=== PATIENT | female | born 1940 | race Caucasian/White ===

== ENCOUNTER 2024-03-20 02:00 | Emergency (ER) | payer MEDICAID, MEDICARE, OTHER ==
[~2024-03-20] VITALS: Ht 162.6 cm; Wt 88.5 kg
[~2024-03-20 02:00] MED LIST: SIMV-34 PO; [UNRECOGNIZED DRUG - CODE] PO
[2024-03-20 02:07] VITALS: BP 153/85; PULSE 50; TEMP 98.5; O2SAT 98
[2024-03-20] MEDS: MORPHINE SULFATE 2 MG/ML SYR IVP STA (02:40)
[2024-03-20] MEDS: NACL 0.9% 500 ML IV ONE (02:48)
[2024-03-20] MEDS: ONDANSETRON 4 MG/2 ML VIAL IVP ONE (02:52)
[2024-03-20 02:54] LABS: INR 0.99 (0.8-1.2); PARTIAL THROMBOPLASTIN TIME 23.9 secs (22-35.6); PROTHROMBIN TIME 10.4 secs (10.8-13.4)
[2024-03-20 02:59] LABS: ALANINE AMINOTRANSFERASE 57 U/L (12-78); ALBUMIN 3.3 g/dL (3.4-5.0); ALKALINE PHOSPHATASE 121 U/L (50-136); ANION GAP 6.2 (8-16); ASPARTATE AMINOTRANSFERASE 70 U/L (15-37); CALCIUM 9.6 mg/dL (8.5-10.1); CARBON DIOXIDE 31.5 mmol/L (21-32); CHLORIDE 98 mmol/L (98-107); CREATININE 0.6 mg/dL (0.6-1.3); GLUCOSE 128 mg/dL (74-106); LIPASE 43 U/L (16-77); POTASSIUM 3.7 mmol/L (3.5-5.1); SODIUM SERUM 132 mmol/L (136-145); TOTAL BILIRUBIN 0.9 mg/dL (0.0-1.0); TOTAL PROTEIN, SERUM 7.5 g/dL (6.4-8.2); UREA NITROGEN, BLOOD 12 mg/dL (7-18)
[2024-03-20 03:07] LABS: HEMATOCRIT 37.5 % (36-48); HEMOGLOBIN 13.1 g/dL (12.0-16.0); MEAN CORPUSCULAR HEMOGLOBIN 31 pg (27-31); MEAN CORPUSCULAR VOLUME 88.8 fL (80-94); RED BLOOD CELL COUNT(AUTO) 4.23 MIL/uL (4.20-5.40)
[2024-03-20 03:08] LABS: BASOPHILS % (AUTO) 0.3 % (0.0-2.0); EOSINOPHILS % (AUTO) 1.6 % (0.0-4.0); LYMPHOCYTES % (AUTO) 41.5 % (20.5-51.1); MEAN CORPUSCULAR HGB CONC 35 g/dL (33-37); NEUTROPHILS # (AUTO) 4.1 K/uL (1.8-7.7); NEUTROPHILS % (AUTO) 51.6 % (42.2-75.2); PLATELET COUNT (AUTO) 255 K/uL (140-450); RED CELL DISTRIBUTION WIDTH 12.8 % (11.6-13.7)
[2024-03-20 03:09] LABS: EOSINOPHILS # (AUTO) 0.1 K/uL (0-0.4); LYMPHOCYTES # (AUTO) 3.3 K/uL (2.5-16.5); MONOCYTES # (AUTO) 0.4 K/uL (0.8-1.0)
[2024-03-20 03:18] LABS: APPEARANCE,URINE CLEAR (CLEAR); BILIRUBIN,URINE NEGATIVE (NEGATIVE); BLOOD, URINE NEGATIVE (NEGATIVE); COLOR,URINE YELLOW (YELLOW); LEUKOCYTE ESTERASE ,URINE 2+ (NEGATIVE); NITRITE, URINE NEGATIVE (NEGATIVE); PH,URINE 7.5 (5.0-9.0); PROTEIN,URINE NEGATIVE (NEGATIVE); UGLUCOSE NEGATIVE (NEGATIVE); UROBILINOGEN,URINE 0.2 EU/dL (0.2 - 1)
[2024-03-20 03:20] LABS: BACTERIA,URINE >30 (MANY) /HPF (None Seen); MUCUS,URINE 1+ /LPF (None Seen); RBC,URINE 0-5 /HPF (0-5); SQUAMOUS EPITHELIAL CELL,UR 0-3 (FEW) /LPF (0-3 (FEW))
[2024-03-20] MEDS ORDERED: ONDA-188 PO (05:13)
[2024-03-20] MEDS ORDERED: ACET500T99 PO (05:13)
[2024-03-20] MEDS ORDERED: AMOX1TAB8 PO (05:13)
[2024-03-20] MEDS ORDERED: cefTRIAXone 1,000 MG VIAL ONE (05:21)
[2024-03-20] MEDS: FAMOTIDINE 20 MG TAB PO ONE (05:55)
[2024-03-20] MEDS: ACETAMINOPHEN EXTRA STRENGTH 500 MG TAB PO ONE (05:55)
[2024-03-20 07:40] VITALS: BP 142/46; PULSE 56; RESP 16; TEMP 97.5; O2SAT 98
== END 2024-03-20 07:40 | disposition short-term general hospital (02) ==
LOC: MED 02:00
DX: N10 Acute pyelonephritis (principal); M54.6 Pain in thoracic spine; R10.13 Epigastric pain; R11.2 Nausea with vomiting, unspecified; I10 Essential (primary) hypertension; Z79.899 Other long term (current) drug therapy; Z88.6 Allergy status to analgesic agent
CPT/HCPCS: 36415; 71275; 74174; 80053; 81001; 83690; 84484; 85025; 85610; 85730; 87086; 93005; 96361; 96365; 96375; 99285; J0696; J2270; J2405; J7030; Q9967